=== PATIENT | female | born 1980 | race Two or more races ===

== ENCOUNTER → 2021-01-02 | Emergency (ER) | payer MEDICAID ==
[~2021-01-02] MED LIST: ALBU8HFA PO; CYCL-1 PO; HYDR-3965 PO; HYDR-4353 PO; METH-360 PO; NAPR-1144 PO; NICO-687 TD; NO HOME MEDS; OMEP-84 PO; PENI500T2 PO
== END | disposition left against medical advice (07) ==
LOC: ER 19:21
DX: N39.0 Urinary tract infection, site not specified (principal); Z53.21 Procedure and treatment not carried out due to patient leaving prior to being seen by health care provider